=== PATIENT | male | born 1990 | race Caucasian/White ===

== ENCOUNTER 2017-10-02 17:45 | Emergency (ER) | payer BC ==
[~2017-10-02] VITALS: Ht 182.9 cm; Wt 99.8 kg
[2017-10-02 17:45] VITALS: BP_SYST 107
[~2017-10-02 17:45] MED LIST: ESCI20TA PO; LAM100 PO; LEVE500T13 PO
[2017-10-02] MEDS ORDERED: NACL 0.9% 1,000 ML IV ONE (17:50)
[2017-10-02] MEDS ORDERED: ONDANSETRON HCL 4 MG/2 ML VIAL ONE (17:50)
[2017-10-02] MEDS ORDERED: ONDANSETRON HCL 4 MG/2 ML VIAL IVP ONE (18:00)
[2017-10-02] MEDS ORDERED: LORazepam 2 MG/ML VIAL (FOR ER USE) IVP ONE (18:15)
[2017-10-02 18:16] LABS: BASOPHILS # (AUTO) 0.1 K/uL (0.0-0.2); BASOPHILS % (AUTO) 0.8 % (0.0-2.0); EOSINOPHILS # (AUTO) 0.5 K/uL (0.0-0.4); EOSINOPHILS % (AUTO) 3.7 % (0.0-4.0); HEMOGLOBIN 14.6 g/dL (14.0-18.0); LYMPHOCYTES # (AUTO) 3.5 K/uL (1.0-5.5); LYMPHOCYTES % (AUTO) 26.6 % (20.5-51.5); MEAN CORPUSCULAR HEMOGLOBIN 29 pg (27-31); MEAN CORPUSCULAR HGB CONC 33 % (32-36); MEAN CORPUSCULAR VOLUME 87 fL (79.0-98.0); MONOCYTES # (AUTO) 0.7 K/uL (0.0-1.0); MONOCYTES % (AUTO) 5.7 % (1.7-9.3); NEUTROPHILS # (AUTO) 8.2 K/uL (1.8-7.7); NEUTROPHILS % (AUTO) 63.2 % (40.0-70.0); PLATELET COUNT (AUTO) 443 K/uL (130-430); RED BLOOD CELL COUNT(AUTO) 5.06 MIL/uL (4.2-6.2); RED CELL DISTRIBUTION WIDTH 12.2 % (9.0-15.0); WHITE BLOOD COUNT (AUTO) 13.1 K/uL (4.8-10.8)
[2017-10-02] MEDS ORDERED: ESCI10TA PO (18:25)
[2017-10-02] MEDS ORDERED: LAMO200T2 PO ×2 (18:25)
[2017-10-02 18:26] LABS: CALCIUM 8.8 mg/dL (8.4-11.0); CREATININE 1.21 mg/dL (0.55-1.30); POTASSIUM 3.9 mmol/L (3.5-5.1)
[2017-10-02 18:29] LABS: INR 1.1 (0.80-1.20)
[2017-10-02 18:30] LABS: ALBUMIN 4.3 g/dL (3.4-4.8); TOTAL BILIRUBIN 0.4 mg/dL (0.0-1.0)
[2017-10-02 20:40] VITALS: BP_SYST 106
[2017-10-02 20:42] LABS: BILIRUBIN,URINE NEGATIVE (NEGATIVE); CLARITY/URINE CLEAR (CLEAR); COLOR,URINE YELLOW (YELLOW); GLUCOSE,URINE NEGATIVE (NEGATIVE); KETONES,URINE NEGATIVE (NEGATIVE); LEUKOCYTE ESTERASE ,URINE NEGATIVE (NEGATIVE); NITRITE, URINE NEGATIVE (NEGATIVE); PROTEIN URINE NEGATIVE (NEGATIVE); UROBILINOGEN,URINE 0.2 (0.2-1.0)
[2017-10-02 20:50] LABS: BLOOD, URINE TRACE (NEGATIVE)
[2017-10-02 21:05] LABS: BACTERIA,URINE FEW /HPF (None Seen); FINE GRANULAR CASTS,URINE 0-2 /LPF (None Seen); HYALINE CASTS, URINE 0-2 /LPF (None Seen); MUCUS,URINE 1+ /LPF (None Seen)
== END 2017-10-02 20:40 | disposition home or self-care (01) ==
LOC: SED 17:45
DX: G40.89 Other seizures (principal); Z88.1 Allergy status to other antibiotic agents
CPT/HCPCS: 36415; 74176; 80053; 81000; 83690; 85025; 85610; 85730; 96361; 96374; 96375; 99285; J2060; J2405; J7030

== ENCOUNTER 2021-04-27 22:54 | Emergency (ER) | payer BC, MEDICAID ==
[~2021-04-27] VITALS: Ht 180.3 cm; Wt 113.4 kg
[~2021-04-27 22:54] MED LIST changes: +ESCI10TA PO; -ESCI20TA PO; -LAM100 PO; +LAMO200T2 PO; -LEVE500T13 PO
[2021-04-27 23:00] VITALS: BP_SYST 147
[2021-04-27] MEDS ORDERED: LAMO200T2 PO (23:38)
[2021-04-27] MEDS ORDERED: ESCI20TA PO (23:38)
[2021-04-27] MEDS ORDERED: LAM100 PO (23:38)
[2021-04-27] MEDS ORDERED: LEVE1000 PO (23:38)
[2021-04-28] MEDS ORDERED: LORazepam 2 MG/ML VIAL IVP ONE (00:45)
[2021-04-28 00:55] LABS: BASOPHILS # (AUTO) 0.1 K/uL (0.0-0.2); BASOPHILS % (AUTO) 0.6 % (0.0-2.0); EOSINOPHILS # (AUTO) 0.2 K/uL (0.0-0.4); EOSINOPHILS % (AUTO) 1.5 % (0.0-4.0); HEMATOCRIT 43.3 % (36-54); HEMOGLOBIN 14.5 g/dL (14.0-18.0); LYMPHOCYTES # (AUTO) 2.9 K/uL (1.0-5.5); MEAN CORPUSCULAR HEMOGLOBIN 29 pg (27-31); MEAN CORPUSCULAR HGB CONC 34 % (32-36); MEAN CORPUSCULAR VOLUME 87 fL (79.0-98.0); MONOCYTES # (AUTO) 0.9 K/uL (0.0-1.0); MONOCYTES % (AUTO) 7.6 % (1.7-9.3); NEUTROPHILS # (AUTO) 7.6 K/uL (1.8-7.7); NEUTROPHILS % (AUTO) 65.3 % (40.0-70.0); PLATELET COUNT (AUTO) 386 K/uL (130-430); RED BLOOD CELL COUNT(AUTO) 4.99 MIL/uL (4.2-6.2); WHITE BLOOD COUNT (AUTO) 11.6 K/uL (4.8-10.8)
[2021-04-28 01:28] LABS: CALCIUM 8.9 mg/dL (8.4-11.0); CREATININE 0.96 mg/dL (0.55-1.30); POTASSIUM 3.5 mmol/L (3.5-5.1); TOTAL BILIRUBIN 0.4 mg/dL (0.0-1.0)
[2021-04-28 01:29] LABS: ALBUMIN 3.6 g/dL (3.4-4.8)
[2021-04-28 02:50] VITALS: BP_SYST 140
== END 2021-04-28 02:50 | disposition home or self-care (01) ==
LOC: SED 22:54
DX: R56.9 Unspecified convulsions (principal); R25.1 Tremor, unspecified; R25.3 Fasciculation; Z88.1 Allergy status to other antibiotic agents; Z79.899 Other long term (current) drug therapy
CPT/HCPCS: 36415; 70450; 71045; 76376; 80053; 85025; 93005; 96374; 99285; J2060

== ENCOUNTER 2023-01-04 02:10 | Emergency (ER) | payer OTHER, MEDICAID ==
[~2023-01-04] VITALS: Ht 180.3 cm; Wt 120.2 kg
[~2023-01-04 02:10] MED LIST changes: -ESCI10TA PO; +ESCI20TA PO; +LAM100 PO; +LEVE1000 PO
[2023-01-04 02:22] VITALS: BP_SYST 126
--- NOTE | 2023-01-04 02:26 | NUR ---
Dr. Cole at bedside examining the patient.
--- NOTE | 2023-01-04 02:26 | NUR ---
Patient to ER bed 07 to gown for evaluation. Side rails up. Report given to HEYDI KANG.
[2023-01-04] MEDS ORDERED: LORazepam 2 MG/ML VIAL IM ONE (02:30)
[2023-01-04 02:57] LABS: BASOPHILS # (AUTO) 0.1 K/uL (0.0-0.2); BASOPHILS % (AUTO) 0.7 % (0.0-2.0); EOSINOPHILS # (AUTO) 0.2 K/uL (0.0-0.4); EOSINOPHILS % (AUTO) 1.4 % (0.0-4.0); HEMATOCRIT 41.8 % (36-54); HEMOGLOBIN 13.9 g/dL (14.0-18.0); LYMPHOCYTES # (AUTO) 2.5 K/uL (1.0-5.5); LYMPHOCYTES % (AUTO) 21.9 % (20.5-51.5); MEAN CORPUSCULAR HEMOGLOBIN 29 pg (27-31); MEAN CORPUSCULAR HGB CONC 33 % (32-36); MEAN CORPUSCULAR VOLUME 87 fL (79.0-98.0); MONOCYTES # (AUTO) 0.8 K/uL (0.0-1.0); MONOCYTES % (AUTO) 7.2 % (1.7-9.3); NEUTROPHILS # (AUTO) 7.8 K/uL (1.8-7.7); NEUTROPHILS % (AUTO) 68.8 % (40.0-70.0); PLATELET COUNT (AUTO) 380 K/uL (130-430); RED BLOOD CELL COUNT(AUTO) 4.79 MIL/uL (4.2-6.2); RED CELL DISTRIBUTION WIDTH 13.1 % (9.0-15.0); WHITE BLOOD COUNT (AUTO) 11.3 K/uL (4.8-10.8)
[2023-01-04 03:11] LABS: CREATININE 1.01 mg/dL (0.55-1.30)
[2023-01-04 03:16] LABS: ALBUMIN 3.8 g/dL (3.4-4.8); TOTAL BILIRUBIN 0.5 mg/dL (0.0-1.0)
[2023-01-04] MEDS ORDERED: LORA-259 PO ×3 (03:29→03:36)
[2023-01-04 03:33] VITALS: BP_SYST 112
--- NOTE | 2023-01-04 03:40 | NUR ---
Patient is alert and oriented x3, respirations even and unlabored, and ambulating using a wheelchair. Denied any acute distress at this time. Accompanied by mom. Radha for discharge per Dr. Cole. Printed discharge instructions and prescription given to the patient. ED and 911 precautions given. Patient's mom verbalized understanding.
== END 2023-01-04 03:39 | disposition home or self-care (01) ==
LOC: SED 02:10
DX: G40.A09 Absence epileptic syndrome, not intractable, without status epilepticus (principal); Z88.1 Allergy status to other antibiotic agents; Z79.899 Other long term (current) drug therapy
CPT/HCPCS: 99283; 80053; 85025; 36415; 96372; J2060